=== PATIENT | male | born 1965 | race Caucasian/White ===

== ENCOUNTER 2019-06-22 04:26 | Inpatient (IN) | payer OTHER, MEDICAID ==
[~2019-06-22] VITALS: Ht 175.3 cm; Wt 56.7 kg
[~2019-06-22 04:26] MED LIST: ATEN-166; LISI-600 PO; OXYC20TA4 PO
[2019-06-22 04:30] VITALS: BP_SYST 143
[2019-06-22] MEDS ORDERED: IPRATROPIUM/ALBUTEROL SULFATE 3 ML AMPUL.NEB (DUONEB) INH ONE (05:00)
[2019-06-22] MEDS ORDERED: methylPREDNISolone SOD SUCC/PF 62.5 MG/ML VIAL IVP ONE ×2 (05:00→11:00)
[2019-06-22] MEDS ORDERED: NACL 0.9% 1,000 ML IV ONE ×2 (05:00→05:15)
[2019-06-22] MEDS ORDERED: cefTRIAXone 1 GM in D5W 50 ML IV ONE (05:15)
[2019-06-22 05:43] LABS: HEMATOCRIT 22.8 % (36-54); HEMOGLOBIN 7.7 g/dL (14.0-18.0); MEAN CORPUSCULAR HEMOGLOBIN 29 pg (27-31); MEAN CORPUSCULAR HGB CONC 34 % (32-36); MEAN CORPUSCULAR VOLUME 87 fL (79.0-98.0); RED BLOOD CELL COUNT(AUTO) 2.63 MIL/uL (4.2-6.2); RED CELL DISTRIBUTION WIDTH 15.7 % (9.0-15.0); WHITE BLOOD COUNT (AUTO) 25.3 K/uL (4.8-10.8)
[2019-06-22] MEDS ORDERED: cefTRIAXone 1 GM VIAL ONE (05:50)
[2019-06-22 06:04] LABS: ALBUMIN 2.4 g/dL (3.4-4.8); CALCIUM 8.5 mg/dL (8.4-11.0); CREATININE 3.65 mg/dL (0.55-1.30); POTASSIUM 4.3 mmol/L (3.5-5.1); TOTAL BILIRUBIN 0.2 mg/dL (0.0-1.0)
[2019-06-22 06:11] LABS: ATYPICAL LYMPHOCYTES % 1 % (0-0); BAND % (MANUAL) 2 % (0-6); BASOPHILS % (MANUAL) 0 % (0-2); EOSINOPHILS % (MANUAL) 0 % (0-7); LYMPHOCYTES % (MANUAL) 1 % (20-46); METAMYELOCYTES % 1 % (0-0); MONOCYTES % (MANUAL) 1 % (0-11); PLATELET COUNT (AUTO) 1369 K/uL (130-430)
[2019-06-22] MEDS ORDERED: IPRATROPIUM BROM 0.5 MG/2.5 ML VIAL.NEB (ATROVENT) INH PRN (06:30)
[2019-06-22] MEDS ORDERED: LORazepam 2 MG/ML VIAL IVP ONE ×2 (06:30→10:45)
[2019-06-22] MEDS ORDERED: ALBUTEROL SULFATE 0.083% 2.5 MG/3 ML VIAL.NEB INH PRN (06:30)
[2019-06-22] MEDS ORDERED: IPRATROPIUM BROM 0.5 MG/2.5 ML VIAL.NEB (ATROVENT) INH SCH (07:00)
[2019-06-22] MEDS ORDERED: ALBUTEROL SULFATE 0.083% 2.5 MG/3 ML VIAL.NEB INH SCH (07:00)
[2019-06-22 07:37] LABS: TOTAL IRON BIND. CAPACITY 274 ug/dL (250-450)
[2019-06-22 08:19] VITALS: BP_SYST 175
[2019-06-22 08:21] VITALS: BP_SYST 175
[2019-06-22 08:27] VITALS: BP_SYST 175
[2019-06-22] MEDS ORDERED: AZITHROMYCIN 500 MG in NS 250 ML IV SCH (09:00)
[2019-06-22] MEDS ORDERED: hydrALAZINE HCL 20 MG/ML VIAL IVP PRN (10:00)
[2019-06-22] MEDS ORDERED: cloNIDine HCL 0.1 MG TABLET PO PRN (10:00)
[2019-06-22] MEDS ORDERED: FUROSEMIDE 40 MG/4 ML VIAL IVP ONE (10:00)
[2019-06-22] MEDS ORDERED: NICOTINE 14 MG/24 HR PATCH.TD24 TD SCH (10:45)
[2019-06-22] MEDS ORDERED: methylPREDNISolone SOD SUCC/PF 62.5 MG/ML VIAL IVP SCH (14:00)
[2019-06-22] MEDS ORDERED: cefTRIAXone 1 GM in D5W 50 ML IV SCH (21:00)
[2019-06-23 11:07] LABS: FOLATE (FOLIC ACID) 9.1 ng/mL (>3.0)
== END 2019-06-22 11:43 | disposition left against medical advice (07) | DRG 682 ==
LOC: SED 04:26 → STU 06:22
PROVIDERS: ADMIT Internal Medicine Hospice and Palliative Medicine; ATTEND Internal Medicine Hospice and Palliative Medicine
DX: N17.9 Acute kidney failure, unspecified (principal); J18.9 Pneumonia, unspecified organism; I13.0 Hypertensive heart and chronic kidney disease with heart failure and stage 1 through stage 4 chronic kidney disease, or unspecified chronic kidney disease; E87.1 Hypo-osmolality and hyponatremia; N18.4 Chronic kidney disease, stage 4 (severe); D64.9 Anemia, unspecified; E88.09 Other disorders of plasma-protein metabolism, not elsewhere classified; F12.90 Cannabis use, unspecified, uncomplicated; N28.1 Cyst of kidney, acquired; F17.210 Nicotine dependence, cigarettes, uncomplicated; M17.12 Unilateral primary osteoarthritis, left knee; I50.9 Heart failure, unspecified; Z81.1 Family history of alcohol abuse and dependence; Z82.49 Family history of ischemic heart disease and other diseases of the circulatory system; Z90.49 Acquired absence of other specified parts of digestive tract
CPT/HCPCS: 36415; 36600; 71045; 71250-TC; 80053; 82607; 82746; 82803-TC; 83540-TC; 83550-TC; 83605; 83880; 84484; 85007; 85027; 85379; 87040-TC; 93005; 93306; 94640; 96365; 96375; 99285; G0378; J0456; J0696; J1940; J2060; J2930; J7050; J7613; J7620